=== PATIENT | male | born 1950 | race Caucasian/White ===

== ENCOUNTER → 2018-04-18 | Outpatient (CLI) | payer OTHER, MEDICARE ==
--- NOTE | 2018-04-18 11:44 | MR ---
EXAMINATION TYPE: MR cervical spine wo con DATE OF EXAM: 04/18/2018 COMPARISON: None HISTORY: Disc displacement C5-C6 TECHNIQUE: Multiplanar, multisequence images of the cervical spine were acquired. C2-C3: No evidence for degenerative disc disease. No disc bulge/herniation or protrusion. No Canal stenosis. Foramina are patent bilaterally. C3-C4: No evidence for degenerative disc disease. No disc bulge/herniation or protrusion. No Canal stenosis. Foramina are patent bilaterally. C4-C5: Posterior broad-based disc bulge causes minimal anterior mass effect on the thecal sac. No sig nificant central stenosis or foraminal encroachment. C5-C6: Posterior broad-based disc bulge causes mild anterior mass effect on the thecal sac. No signif icant central stenosis or foraminal encroachment. C6-C7: There is posterior extension of endplate disc complex, broad-based posterior disc bulge causin g anterior mass effect on the thecal sac, possibly contacting the anterior cervical cord. Foraminal e ncroachment due to uncovertebral joint hypertrophy facet arthropathy suspected. No significant centra l canal stenosis however. C7-T1: No evidence for degenerative disc disease. No disc bulge/herniation or protrusion. No Canal stenosis. Foramina are patent bilaterally. Cervical segments are intact. There is normal alignment. Cervical spinal cord is of normal signal. Craniovertebral junction relationships are within normal limits. There is multilevel spondylosis. Mi nimal endplate marrow signal changes are present especially 4, C5, C6-7. IMPRESSION: Mild degenerative disc disease.
== END | disposition home or self-care (01) ==
LOC: RADMRIMAIN 10:30
PROVIDERS: ATTEND Family Medicine
DX: M50.321 Other cervical disc degeneration at C4-C5 level (principal)
CPT/HCPCS: 72141

== ENCOUNTER 2018-06-02 11:44 | Emergency (ER) | payer MEDICARE ==
--- NOTE | 2018-06-02 12:21 | ED ---
General Adult HPI - General Chief complaint: Upper Respiratory Infection Stated complaint: cough, congestion Time Seen by Provider: 06/02/18 12:05 Source: patient, RN notes reviewed Mode of arrival: ambulatory Limitations: no limitations - History of Present Illness Initial comments: Patient is a 67-year-old male who presents to the emergency department with complaints of cough productive of sputum for 3 days. He reports he has been taking levofloxacin (2 doses) which was prescribed by his doctor. He also has an inhaler which he uses occasionally after he had pneumonia previously. He believes he has a "touch of asthma." Admits to shortness of breath, runny nose, congestion, and sore throat. Patient denies any recent fever, chills, chest pain , back pain, abdominal pain, nausea or vomiting, numbness or tingling, constipation or diarrhea, headaches or visual changes, or any other complaints. - Related Data Home Medications Medication Instructions Recorded Confirmed Beclomethasone Dipropionate [Qvar 2 puff INHALATION RT-BID PRN 06/02/18 06/02/18 80 mcg] Levofloxacin [Levaquin] 500 mg PO DAILY 06/02/18 06/02/18 Naproxen Sodium [Aleve] 220 mg PO BID PRN 06/02/18 06/02/18 Previous Rx's Medication Instructions Recorded Beclomethasone Dipropionate [Qvar 2 puff INHALATION BID PRN #1 06/02/18 80 mcg] inhaler Allergies Allergy/AdvReac Type Severity Reaction Status Date / Time No Known Allergies Allergy Verified 06/02/18 12:26 Review of Systems ROS Statement: Those systems with pertinent positive or pertinent negative responses have been documented in the HPI. ROS Other: All systems not noted in ROS Statement are negative. Past Medical History Past Medical History: No Reported History History of Any Multi-Drug Resistant Organisms: None Reported Past Surgical History: Orthopedic Surgery Past Psychological History: No Psychological Hx Reported Smoking Status: Never smoker Past Alcohol Use History: Occasional Past Drug Use History: None Reported General Exam Limitations: no limitations General appearance: alert, in no apparent distress Head exam: Present: atraumatic, normocephalic Eye exam: Present: normal appearance ENT exam: Present: TM's normal bilaterally, normal external ear exam, other ( Patient unable to cooperate with throat exam (unable to visualize tonsils/ oropharynx).) Neck exam: Present: normal inspection, other (No lymphadenopathy.) Respiratory exam: Present: wheezes (Throughout lung harper.), rhonchi ( Throughout lung harper.) Cardiovascular Exam: Present: normal rhythm, tachycardia GI/Abdominal exam: Present: soft, normal bowel sounds, other (No tenderness.) Extremities exam: Present: normal capillary refill Neurological exam: Present: alert, oriented X3 Psychiatric exam: Present: normal affect, normal mood Skin exam: Present: warm, dry Course Vital Signs 06/02/18 06/02/18 06/02/18 11:53 12:17 12:22 Temperature 98.2 F Pulse Rate 107 H 102 H Respiratory 20 20 20 Rate Blood Pressure 131/86 124/88 O2 Sat by Pulse 96 93 L Oximetry 06/02/18 06/02/18 06/02/18 12:51 12:59 14:59 Temperature Pulse Rate 88 100 102 H Respiratory Rate Blood Pressure O2 Sat by Pulse Oximetry 06/02/18 15:08 Temperature Pulse Rate 98 Respiratory Rate Blood Pressure O2 Sat by Pulse Oximetry Medical Decision Making - Medical Decision Making Patient feels better since breathing treatments. Chest x-ray reveals no acute pulmonary process and COPD. Upon further questioning the patient admitted that he had once been told he had COPD but that another doctor had told him he did not. He is outside the window of time for Tamiflu and since there is a reasonable chance it will not work he does not want to try it. He may continue taking the levofloxacin as prescribed by his physician. I will write him a prescription for Qvar. Case discussed in detail with attending physician Dr. Bynum. - Lab Data Result diagrams: 06/02/18 13:00 06/02/18 13:00 Lab Results 06/02/18 06/02/18 06/02/18 Range/Units 12:32 13:00 13:00 WBC 8.3 (3.8-10.6) k/uL RBC 5.70 (4.30-5.90) m/uL Hgb 17.6 H (13.0-17.5) gm/dL Hct 52.7 (39.0-53.0) % MCV 92.5 (80.0-100.0) fL MCH 30.9 (25.0-35.0) pg MCHC 33.4 (31.0-37.0) g/dL RDW 13.3 (11.5-15.5) % Plt Count 142 L (150-450) k/uL Neutrophils % 73 % Lymphocytes % 14 % Monocytes % 7 % Eosinophils % 3 % Basophils % 0 % Neutrophils # 6.0 (1.3-7.7) k/uL Lymphocytes # 1.1 (1.0-4.8) k/uL Monocytes # 0.6 (0-1.0) k/uL Eosinophils # 0.2 (0-0.7) k/uL Basophils # 0.0 (0-0.2) k/uL Sodium 140 (137-145) mmol/L Potassium 4.4 (3.5-5.1) mmol/L Chloride 106 (98-107) mmol/L Carbon Dioxide 25 (22-30) mmol/L Anion Gap 9 mmol/L BUN 20 (9-20) mg/dL Creatinine 0.85 (0.66-1.25) mg/dL Est GFR (CKD-EPI)AfAm >90 (>60 ml/min/1.73 sqM) Est GFR (CKD-EPI)NonAf 90 (>60 ml/min/1.73 sqM) Glucose 118 H (74-99) mg/dL Calcium 9.4 (8.4-10.2) mg/dL Influenza Type A RNA Detected H (Not Detectd) Influenza Type B (PCR) Not Detected (Not Detectd) Group A Strep Rapid (Negative) 06/02/18 Range/Units 13:00 WBC (3.8-10.6) k/uL RBC (4.30-5.90) m/uL Hgb (13.0-17.5) gm/dL Hct (39.0-53.0) % MCV (80.0-100.0) fL MCH (25.0-35.0) pg MCHC (31.0-37.0) g/dL RDW (11.5-15.5) % Plt Count (150-450) k/uL Neutrophils % % Lymphocytes % % Monocytes % % Eosinophils % % Basophils % % Neutrophils # (1.3-7.7) k/uL Lymphocytes # (1.0-4.8) k/uL Monocytes # (0-1.0) k/uL Eosinophils # (0-0.7) k/uL Basophils # (0-0.2) k/uL Sodium (137-145) mmol/L Potassium (3.5-5.1) mmol/L Chloride (98-107) mmol/L Carbon Dioxide (22-30) mmol/L Anion Gap mmol/L BUN (9-20) mg/dL Creatinine (0.66-1.25) mg/dL Est GFR (CKD-EPI)AfAm (>60 ml/min/1.73 sqM) Est GFR (CKD-EPI)NonAf (>60 ml/min/1.73 sqM) Glucose (74-99) mg/dL Calcium (8.4-10.2) mg/dL Influenza Type A RNA (Not Detectd) Influenza Type B (PCR) (Not Detectd) Group A Strep Rapid Negative (Negative) Disposition Clinical Impression: Influenza Disposition: HOME SELF-CARE Condition: Good Instructions: Influenza (ED) Additional Instructions: Follow up with PCP in 2 days. Return to emergency department if symptoms worsen or any other concerns. Prescriptions: Beclomethasone Dipropionate [Qvar 80 mcg] 2 puff INHALATION BID PRN #1 inhaler PRN Reason: Shortness Of Breath Or Wheezing Is patient prescribed a controlled substance at d/c from ED?: No Referrals: Kaushal Armendariz DO [Primary Care Provider] - 1-2 days Time of Disposition: 15:45
[2018-06-02] MEDS ORDERED: IPRATROPIUM-ALBUTEROL 3 ML NEB INHALATION STA ×2 (12:37→13:56)
[2018-06-02] MEDS ORDERED: SODIUM CHLORIDE 0.9% 1,000 ML IV STA (12:38)
--- NOTE | 2018-06-02 12:50 | XR ---
EXAMINATION TYPE: XR chest 2V DATE OF EXAM: 06/02/2018 COMPARISON: 08/09/2012 INDICATION: Cough, congestion x3 days TECHNIQUE: Frontal and lateral views of the chest are obtained. FINDINGS: The heart size is normal. The pulmonary vasculature is normal. The lungs are clear. There is hyperinflation flattening the diaphragms. Correlate for COPD IMPRESSION: 1. No acute pulmonary process. 2. COPD
[2018-06-02] MEDS ORDERED: DEXAMETHASONE 4 MG TAB PO STA (13:05)
[2018-06-02 13:19] LABS: Basophils % (A) 0 %; Eosinophils # (A) 0.2 k/uL (0-0.7); Eosinophils % (A) 3 %; HCT 52.7 % (39.0-53.0); HGB 17.6 gm/dL (13.0-17.5); Lymphocytes # (A) 1.1 k/uL (1.0-4.8); Lymphocytes % (A) 14 %; MCH 30.9 pg (25.0-35.0); MCHC 33.4 g/dL (31.0-37.0); MCV 92.5 fL (80.0-100.0); Mean Platelet Volume 6.9; Monocytes # (A) 0.6 k/uL (0-1.0); Monocytes % (A) 7 %; Neutrophils % (A) 73 %; Platelet Count 142 k/uL (150-450); RDW 13.3 % (11.5-15.5); WBC 8.3 k/uL (3.8-10.6)
[2018-06-02 13:27] LABS: Anion Gap 9 mmol/L; Blood Urea Nitrogen 20 mg/dL (9-20); Calcium 9.4 mg/dL (8.4-10.2); Carbon Dioxide 25 mmol/L (22-30); Chloride 106 mmol/L (98-107); Glucose 118 mg/dL (74-99); Potassium 4.4 mmol/L (3.5-5.1); Sodium 140 mmol/L (137-145)
[2018-06-02 15:58] VITALS: BP 135/82; PULSE 104; RESP 18; TEMP 98.3
== END 2018-06-02 16:02 | disposition home or self-care (01) ==
LOC: EC 11:44
DX: J11.1 Influenza due to unidentified influenza virus with other respiratory manifestations (principal); R00.0 Tachycardia, unspecified; Z87.01 Personal history of pneumonia (recurrent)
CPT/HCPCS: 36415; 94640 ×2; 80048; 85025; 87081; 87430; 87502; 71046; 99285; 96360; 96361; J8540

== ENCOUNTER 2018-06-04 16:57 | Emergency (ER) | payer MEDICARE ==
[2018-06-04 17:14] VITALS: RESP 18; TEMP 97.9
--- NOTE | 2018-06-04 17:30 | ED ---
General Adult HPI - General Chief complaint: Recheck/Abnormal Lab/Rx Stated complaint: left side neck swelling/congestion Source: patient Mode of arrival: ambulatory Limitations: no limitations - History of Present Illness Initial comments: Dictation was produced using [employer] dictation software. please excuse any grammatical, word or spelling errors. Chief Complaint: 67-year-old male with no significant past medical history presents with left jaw pain. History of Present Illness: Patient was recently seen in the emergency department for cough. He was worked up and found to have influenza. Patient was discharged. Patient presents today Is upon waking he noted swelling to his left anterior jaw. He states it wasn't there yesterday. States slightly painful to palpation. Patient denies any abnormal taste in his mouth. Patient has no worsening sore throat. No respiratory distress. Patient denies any hearing loss. The ROS documented in this emergency department record has been reviewed and confirmed by me. Those systems with pertinent positive or negative responses have been documented in the HPI. All other systems are other negative and/or noncontributory. - Related Data Home Medications Medication Instructions Recorded Confirmed Levofloxacin [Levaquin] 500 mg PO DAILY 06/02/18 06/04/18 Naproxen Sodium [Aleve] 220 mg PO BID PRN 06/02/18 06/04/18 Previous Rx's Medication Instructions Recorded Beclomethasone Dipropionate [Qvar 2 puff INHALATION BID PRN #1 06/02/18 80 mcg] inhaler Allergies Allergy/AdvReac Type Severity Reaction Status Date / Time No Known Allergies Allergy Verified 06/04/18 17:43 Review of Systems ROS Statement: Those systems with pertinent positive or pertinent negative responses have been documented in the HPI. ROS Other: All systems not noted in ROS Statement are negative. Past Medical History Past Medical History: No Reported History History of Any Multi-Drug Resistant Organisms: None Reported Past Surgical History: Orthopedic Surgery Past Psychological History: No Psychological Hx Reported Smoking Status: Never smoker Past Alcohol Use History: Occasional Past Drug Use History: None Reported General Exam - General Exam Comments Initial Comments: PHYSICAL EXAM: General Impression: Alert and oriented x3, not in acute distress HEENT: Normocephalic atraumatic, extra-ocular movements intact, pupils equal and reactive to light bilaterally, mucous membranes moist, nonerythematous induration to the left angle of the mandible. Cardiovascular: Heart regular rate and rhythm, S1&S2 audible, no murmurs, rubs or gallops Chest: Lungs clear to auscultation bilaterally, no rhonchi, no wheeze, no rales Abdomen: Bowel sounds present, abdomen soft, non-tender, non-distended, no organomegaly Musculoskeletal: Pulses present and equal in all extremities, no peripheral edema Motor: Power 5/5 bilaterally, no focal deficits noted Neurological: CN II-XII grossly intact, no focal motor or sensory deficits noted Skin: Intact with no visualized rashes Psych: Normal affect and mood Limitations: no limitations Course Vital Signs 06/04/18 17:12 Temperature 97.9 F Pulse Rate 85 Respiratory 18 Rate Blood Pressure 137/78 O2 Sat by Pulse 95 Oximetry Medical Decision Making - Medical Decision Making ED course: 79-year-old male with no significant past medical history presents with chief complaint of left mandibular pain and swelling. Vital signs upon arrival are within acceptable limits.CT soft tissue of the neck was obtained. There was some inflammatory fat stranding at the inferior margin of left parotid gland within the subcutaneous tissues of the neck. There is consideration of left sialoadenitis. More history and physical examination was performed. Patient had some fluid draining from the left vocal salivary duct. Patient told consult on sialagogues to help drain inflammation around the salivary gland. Patient also told to massage the left side of his face. Patient understandable agreeable to plan. Told to follow-up with primary care physician for further care. - Lab Data Result diagrams: 06/04/18 17:50 Lab Results 06/04/18 Range/Units 17:50 Sodium 142 (137-145) mmol/L Potassium 4.3 (3.5-5.1) mmol/L Chloride 104 (98-107) mmol/L Carbon Dioxide 27 (22-30) mmol/L Anion Gap 11 mmol/L BUN 21 H (9-20) mg/dL Creatinine 0.87 (0.66-1.25) mg/dL Est GFR (CKD-EPI)AfAm >90 (>60 ml/min/1.73 sqM) Est GFR (CKD-EPI)NonAf 89 (>60 ml/min/1.73 sqM) Glucose 115 H (74-99) mg/dL Calcium 9.1 (8.4-10.2) mg/dL Disposition Clinical Impression: Sialoadenitis Disposition: HOME SELF-CARE Condition: Good Is patient prescribed a controlled substance at d/c from ED?: No Referrals: Kaushal Armendariz DO [Primary Care Provider] - 1-2 days Time of Disposition: 19:32
[2018-06-04 18:19] LABS: Anion Gap 11 mmol/L; Blood Urea Nitrogen 21 mg/dL (9-20); Calcium 9.1 mg/dL (8.4-10.2); Carbon Dioxide 27 mmol/L (22-30); Chloride 104 mmol/L (98-107); Glucose 115 mg/dL (74-99); Potassium 4.3 mmol/L (3.5-5.1); Sodium 142 mmol/L (137-145)
--- NOTE | 2018-06-04 19:20 | CT ---
EXAMINATION TYPE: CT soft tissue neck w con DATE OF EXAM: 06/04/2018 HISTORY: swelling to left side of neck COMPARISON: MRI of the cervical spine dated 04/18/2018 CT DLP: 259.3 mGycm. Automated Exposure Control for Dose Reduction was Utilized. TECHNIQUE: CT scan of the neck is performed with IV Contrast, patient injected with 100 mL of Isovue 300, axial images are obtained, coronal and sagittal reformatted images are reviewed. FINDINGS: Airway: The pharyngeal tonsils are symmetric. Vallecula and piriform sinuses are patent. True and fal se focal cords are unremarkable. Small tonsilloliths are seen in the right. Parotid/submandibular glands: There is left-sided inflammatory fat stranding inferior to the left pa rotid gland and surrounding the inferior margin of the left parotid gland on image 28 through 34. No radiopaque calculus is seen. No dilation of the parotid duct. Submandibular prominent but nonenlarged lymph nodes are likely reactive on the left. Carotid/Vascular Structures: Carotids and vertebral arteries appear patent. Osseous Structures: Mild mucosal thickening is seen within the right maxillary sinus. Scant mucosal t hickening is present within the ethmoid sinuses. Remaining paranasal sinuses and mastoid air cells ar e well aerated. Mild multilevel degenerative changes of the spine are noted. Other: Cerebral atrophy is mild. Exam is not optimized for evaluation of intracranial structures. Orb its appear symmetric. IMPRESSION: Inflammatory fat stranding at the inferior margin of the left parotid gland and within th e subcutaneous tissues of the left neck. Left sialoadenitis is a possibility although no radiopaque o bstructing calculus is seen or ductal dilatation.
[2018-06-04 20:00] VITALS: BP 131/72; PULSE 86
== END 2018-06-04 20:00 | disposition home or self-care (01) ==
LOC: EC 16:57
DX: K11.20 Sialoadenitis, unspecified (principal)
CPT/HCPCS: 36415; 80048; 70491; 99284; Q9967

== ENCOUNTER → 2018-08-16 | Outpatient (CLI) | payer MEDICARE ==
--- NOTE | 2018-08-16 15:22 | MR ---
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 TECHNIQUE: Multiplanar, multisequence images of the brain and brainstem acoustic nerve disorder protocol is perf ormed without and with IV contrast, utilizing 10 mL intravenous Gadavist . FINDINGS: Diffusion weighted images demonstrate no evidence of a recent infarct or other diffusion ab normality. There is no worrisome extra-axial fluid collection. There is ventricular and sulcal promi nence consistent with diffuse cerebral atrophy. There are scattered foci of T2 hyperintensity seen th roughout the superficial, deep, and periventricular white matter. Lesions are nonspecific in appearan ce and distribution but most likely on basis of product of chronic small vessel ischemic change in pa tient of this age. Midline structures demonstrate normal morphology. The craniocervical junction appears within normal limits. The visualized sinuses are clear and the globes are intact. No suspicious opacification is seen in mastoid air cells bilaterally. Vestibulocochlear complexes are symmetric and felt within normal limits. There is no suspicious enhancing cerebellopontine angle mas s identified bilaterally. IMPRESSION: Mild to moderate diffuse cerebral atrophy and chronic small vessel ischemic change. No dye spicious enhancing mass present to account for patient's symptoms.
== END | disposition home or self-care (01) ==
LOC: RADMRIMAIN 13:39
PROVIDERS: ATTEND Otolaryngology
DX: I67.82 Cerebral ischemia (principal); G31.9 Degenerative disease of nervous system, unspecified
CPT/HCPCS: 82565; 70553; A9585

== ENCOUNTER → 2018-08-21 | Outpatient (CLI) | payer MEDICARE ==
--- NOTE | 2018-08-22 14:12 | ENG ---
ELECTRONYSTAGMOGRAM REPORT DATE OF SERVICE: 08/21/2018 VNG INDICATIONS: Vertigo. VNG FINDINGS: Saccades shows intact peak velocities, accuracies, and latencies. Gaze with fixation shows no nystagmus in any of the directions of gaze including centrally with vision denied. Tracking shows no significant break-ups. Optokinetic nystagmus shows no significant asymmetry at faster or slower speeds. Static position testing in seated, supine, head right and head left positions showed no nystagmus with eyes open or with vision denied. Patient unable to do side-lying positions or [place]-Hallpike maneuvers due to low back and neck problems. Caloric testing shows 10% unilateral left caloric weakness which is within normal limits. IMPRESSION: Unremarkable VNG study. Technical note that [place]-Hallpike maneuvers and position testing on the right and left side were not able to be completed due to the low back and neck pain. JEANA / GAYLEN: [id number] /
== END | disposition home or self-care (01) ==
LOC: NEUROMAIN 08:47
PROVIDERS: ATTEND Otolaryngology
DX: R42 Dizziness and giddiness (principal)
CPT/HCPCS: 92537; 92540

== ENCOUNTER 2019-01-18 13:40 | Emergency (ER) | payer MEDICARE ==
[2019-01-18 13:56] VITALS: RESP 18; TEMP 97.6
[2019-01-18] MEDS ORDERED: LORazepam 2 MG/ML INJ IV STA (14:10)
--- NOTE | 2019-01-18 14:36 | ED ---
General Adult HPI - General Source: patient, RN notes reviewed Mode of arrival: ambulatory Limitations: no limitations <Thien Tarango - Last Filed: 01/18/19 17:18> <Lobito Rice - Last Filed: 01/18/19 18:51> - General Chief complaint: Abdominal Pain Stated complaint: Abd pain Time Seen by Provider: 01/18/19 13:45 - History of Present Illness Initial comments: 68-year-old male with a past medical history of orthopedic surgery since to the emergency department for a chief complaint of left lower abdominal pain extending into his left groin. States this has been ongoing for about 3 days. States it seems to be getting worse. Patient is concerned he may have a hernia but was told previously he does not have a hernia. Patient states that today he noticed that his upper abdomen was bloating as well. States his abdomen was much larger than normal. She states she has had 2 loose bowel movements today. He is also some nausea but denies vomiting. Denies pain with urination. Denies fevers or chills. Does admit to a history of diverticulitis but states this does not feel the same. Patient stating he is scheduled for hip replacement of the right hip on 02/05/[address] Benitez. States this right hip started hurting just a few weeks ago and was found to be [id number]. Patient has no other complaints at this time including shortness of breath, chest pain, abdominal pain, nausea or vomiting, headache, or visual changes. (Thien Tarango) - Related Data Home Medications Medication Instructions Recorded Confirmed Naproxen Sodium [Aleve] 220 mg PO BID PRN 06/02/18 01/18/19 Allergies Allergy/AdvReac Type Severity Reaction Status Date / Time No Known Allergies Allergy Verified 01/18/19 15:08 Review of Systems ROS Other: All systems not noted in ROS Statement are negative. <Thien Tarango - Last Filed: 01/18/19 17:18> ROS Other: All systems not noted in ROS Statement are negative. <Lobito Rice - Last Filed: 01/18/19 18:51> ROS Statement: Those systems with pertinent positive or pertinent negative responses have been documented in the HPI. Past Medical History Past Medical History: No Reported History History of Any Multi-Drug Resistant Organisms: None Reported Past Surgical History: Orthopedic Surgery Past Psychological History: No Psychological Hx Reported Smoking Status: Never smoker Past Alcohol Use History: Occasional Past Drug Use History: None Reported <Thien Tarango - Last Filed: 01/18/19 17:18> General Exam Limitations: no limitations General appearance: alert, in no apparent distress Head exam: Present: atraumatic, normocephalic, normal inspection Eye exam: Present: normal appearance, PERRL, EOMI. Absent: scleral icterus, conjunctival injection, periorbital swelling ENT exam: Present: normal exam, mucous membranes moist Neck exam: Present: normal inspection, full ROM. Absent: tenderness, meningismus, lymphadenopathy Respiratory exam: Present: normal lung sounds bilaterally. Absent: respiratory distress, wheezes, rales, rhonchi, stridor Cardiovascular Exam: Present: regular rate, normal rhythm, normal heart sounds. Absent: systolic murmur, diastolic murmur, rubs, gallop, clicks GI/Abdominal exam: Present: soft, distended, tenderness (Mild left lower quadrant tenderness. No upper abdominal tenderness), normal bowel sounds. Absent: guarding, rebound, rigid exam: Present: normal inspection, other (No obvious hernia) Neurological exam: Present: alert, oriented X3, CN II-XII intact Psychiatric exam: Present: normal affect, normal mood <Thien Tarango - Last Filed: 01/18/19 17:18> Course <Lobito Rice - Last Filed: 01/18/19 18:51> Vital Signs 01/18/19 01/18/19 13:49 15:59 Temperature 97.6 F Pulse Rate 80 77 Respiratory 18 18 Rate Blood Pressure 138/99 140/95 O2 Sat by Pulse 95 95 Oximetry - Reevaluation(s) Reevaluation #1: 01/18/19 17:42 Patient reevaluated by myself, Dr. Rice. Patient standing comfortably at bedside. Patient states discomfort is left lower abdomen has resolved however still feels bloated of the upper abdomen. Abdomen is soft without significant tenderness. CT report reviewed. Case was discussed with Dr. Emanuel who will review the films (Lobito Rice) Medical Decision Making - Lab Data Result diagrams: 01/18/19 14:16 01/18/19 14:16 <Sukhdeep,Thien P - Last Filed: 01/18/19 17:18> - Lab Data Result diagrams: 01/18/19 14:16 01/18/19 14:16 - Radiology Data Radiology results: image reviewed (Computed tomography scan of the abdomen pelvis shows diverticulosis without diverticulitis, fusiform 3.6 cm distal aorta. Focus of air in the right iliac wing. Also may be area adjacent to the light sacral bone) <Lobito Rice - Last Filed: 01/18/19 18:51> - Medical Decision Making 68-year-old male with a past medical history of left hip replacement presents to the emergency department for a chief complaint of abdominal pain and bloating. Patient has had left groin pain for the past 3 days and today noticed his upper abdomen was bloating. States that this has improved much since he left the house and came to the emergency department. States he has been evaluated for swelling in the left groin before which has been ongoing for years but has worsened. States she was told there is no hernia by a surgeon. Denies nausea vomiting or diarrhea. Patient also complaining of right hip pain which he states he is scheduled for hip replacement for in a few weeks. States this pain has been ongoing for the past couple weeks. On exam I do not see any sign ificant swelling noted of the left groin. No significant tenderness noted in the left groin. Patient does have some left lower quadrant tenderness. Patient has full range motion of the right hip but it is painful. Vitals are stable. CBC and CMP are unremarkable. Lactic acid 0.8. Urine negative. Patient does have a fusiform prominence of the distal abdominal aorta with a diameter of 3.6 cm w hich was discussed with him. Patient has no suspicious lytic or sclerotic lesions noted of the osseous structures. There is a very low density within the right medial iliac crest which could be compatible with air. No recent bone biopsy. There is a consideration for osteomyelitis. Some air may be adjacent to the anterior inferior sacroiliac joint. Discussed case with Dr. Rice (Thien Luna) Patient was reevaluated by myself, Dr. Rice. Patient did complain of abdominal discomfort and bloating, more in the upper abdomen. Patient states he did have some discomfort left lower abdomen however now is more in the epigastric region. Abdomen is soft and nontender. Case was discussed with Dr. Emanuel who did come in and review the films. He did request CRP. He feels patient is safe for discharge and follow-up. He did discuss case with Dr. Benitez with previously seen the patient. Patient was again reevaluated and resting comfortably in chair at bedside. Patient is offered admission however refuses and states he will follow-up. Patient states he does have a another appointment with a different orthopedic doctor on Tuesday and will take his computed tomography scan there as well. Patient states he will also follow-up again with Dr. Benitez. Patient is advised also follow-up with primary care physician. Patient is made aware of all CT findings including patient's . (Lobito Rice) - Lab Data Lab Results 01/18/19 01/18/19 01/18/19 Range/Units 14:10 14:16 14:16 WBC 8.7 (3.8-10.6) k/uL RBC 5.41 (4.30-5.90) m/uL Hgb 16.5 (13.0-17.5) gm/dL Hct 48.7 (39.0-53.0) % MCV 90.0 (80.0-100.0) fL MCH 30.5 (25.0-35.0) pg MCHC 33.8 (31.0-37.0) g/dL RDW 13.5 (11.5-15.5) % Plt Count 234 (150-450) k/uL Neutrophils % 69 % Lymphocytes % 21 % Monocytes % 5 % Eosinophils % 2 % Basophils % 1 % Neutrophils # 6.0 (1.3-7.7) k/uL Lymphocytes # 1.8 (1.0-4.8) k/uL Monocytes # 0.4 (0-1.0) k/uL Eosinophils # 0.2 (0-0.7) k/uL Basophils # 0.1 (0-0.2) k/uL Sodium 141 (137-145) mmol/L Potassium 4.2 (3.5-5.1) mmol/L Chloride 106 (98-107) mmol/L Carbon Dioxide 27 (22-30) mmol/L Anion Gap 8 mmol/L BUN 21 H (9-20) mg/dL Creatinine 0.78 (0.66-1.25) mg/dL Est GFR (CKD-EPI)AfAm >90 (>60 ml/min/1.73 sqM) Est GFR (CKD-EPI)NonAf >90 (>60 ml/min/1.73 sqM) Glucose 99 (74-99) mg/dL Plasma Lactic Acid Jesse (0.7-2.0) mmol/L Calcium 9.4 (8.4-10.2) mg/dL Total Bilirubin 0.7 (0.2-1.3) mg/dL AST 32 (17-59) U/L ALT 38 (21-72) U/L Alkaline Phosphatase 96 (38-126) U/L C-Reactive Protein (<10.0) mg/L Total Protein 7.5 (6.3-8.2) g/dL Albumin 4.6 (3.5-5.0) g/dL Amylase 57 (30-110) U/L Lipase 66 (23-300) U/L Urine Color Yellow Urine Appearance Clear (Clear) Urine pH 6.0 (5.0-8.0) Ur Specific [place] 1.026 (1.001-1.035) Urine Protein Negative (Negative) Urine Glucose (UA) Negative (Negative) Urine Ketones Negative (Negative) Urine Blood Negative (Negative) Urine Nitrite Negative (Negative) Urine Bilirubin Negative (Negative) Urine Urobilinogen <2.0 (<2.0) mg/dL Ur Leukocyte Esterase Negative (Negative) 01/18/19 01/18/19 Range/Units 14:16 14:36 WBC (3.8-10.6) k/uL RBC (4.30-5.90) m/uL Hgb (13.0-17.5) gm/dL Hct (39.0-53.0) % MCV (80.0-100.0) fL MCH (25.0-35.0) pg MCHC (31.0-37.0) g/dL RDW (11.5-15.5) % Plt Count (150-450) k/uL Neutrophils % % Lymphocytes % % Monocytes % % Eosinophils % % Basophils % % Neutrophils # (1.3-7.7) k/uL Lymphocytes # (1.0-4.8) k/uL Monocytes # (0-1.0) k/uL Eosinophils # (0-0.7) k/uL Basophils # (0-0.2) k/uL Sodium (137-145) mmol/L Potassium (3.5-5.1) mmol/L Chloride (98-107) mmol/L Carbon Dioxide (22-30) mmol/L Anion Gap mmol/L BUN (9-20) mg/dL Creatinine (0.66-1.25) mg/dL Est GFR (CKD-EPI)AfAm (>60 ml/min/1.73 sqM) Est GFR (CKD-EPI)NonAf (>60 ml/min/1.73 sqM) Glucose (74-99) mg/dL Plasma Lactic Acid Jesse 0.8 (0.7-2.0) mmol/L Calcium (8.4-10.2) mg/dL Total Bilirubin (0.2-1.3) mg/dL AST (17-59) U/L ALT (21-72) U/L Alkaline Phosphatase (38-126) U/L C-Reactive Protein 12.1 H (<10.0) mg/L Total Protein (6.3-8.2) g/dL Albumin (3.5-5.0) g/dL Amylase (30-110) U/L Lipase (23-300) U/L Urine Color Urine Appearance (Clear) Urine pH (5.0-8.0) Ur Specific [place] (1.001-1.035) Urine Protein (Negative) Urine Glucose (UA) (Negative) Urine Ketones (Negative) Urine Blood (Negative) Urine Nitrite (Negative) Urine Bilirubin (Negative) Urine Urobilinogen (<2.0) mg/dL Ur Leukocyte Esterase (Negative) Disposition <Thien Tarango - Last Filed: 01/18/19 17:18> Is patient prescribed a controlled substance at d/c from ED?: No Time of Disposition: 18:51 <Lobito Rice - Last Filed: 01/18/19 18:51> Clinical Impression: Abdominal pain, Right hip pain Disposition: HOME SELF-CARE Condition: Stable Instructions (If sedation given, give patient instructions): Abdominal Pain (E D) Additional Instructions: Please follow-up with primary care physician in the next day or 2 for recheck. Please also follow-up with Dr. Benitez the next day or [address] scan with U for follow-up with your other orthopedic doctor, you are being provided a copy. You will need follow-up regarding computed tomography scan with both orthopedics and primary care physician. Referrals: Kaushal Armendariz DO [Primary Care Provider] - 1-2 days Glenn Benitez DO [Doctor of Osteopathic Medicine] - 1-2 days
[2019-01-18 14:49] LABS: Basophils # (A) 0.1 k/uL (0-0.2); Basophils % (A) 1 %; Eosinophils # (A) 0.2 k/uL (0-0.7); Eosinophils % (A) 2 %; HCT 48.7 % (39.0-53.0); HGB 16.5 gm/dL (13.0-17.5); Lymphocytes # (A) 1.8 k/uL (1.0-4.8); Lymphocytes % (A) 21 %; MCH 30.5 pg (25.0-35.0); MCHC 33.8 g/dL (31.0-37.0); Mean Platelet Volume 6.7; Monocytes # (A) 0.4 k/uL (0-1.0); Monocytes % (A) 5 %; Neutrophils % (A) 69 %; Platelet Count 234 k/uL (150-450); RBC 5.41 m/uL (4.30-5.90); RDW 13.5 % (11.5-15.5); WBC 8.7 k/uL (3.8-10.6)
[2019-01-18 14:59] LABS: ALT 38 U/L (21-72); AST 32 U/L (17-59); African American GFR (CKD) >90 (>60 ml/min/1.73 sqM); Albumin 4.6 g/dL (3.5-5.0); Alkaline Phosphatase 96 U/L (38-126); Amylase 57 U/L (30-110); Anion Gap 8 mmol/L; Blood Urea Nitrogen 21 mg/dL (9-20); Calcium 9.4 mg/dL (8.4-10.2); Carbon Dioxide 27 mmol/L (22-30); Chloride 106 mmol/L (98-107); Glucose 99 mg/dL (74-99); Lipase 66 U/L (23-300); Potassium 4.2 mmol/L (3.5-5.1); Sodium 141 mmol/L (137-145); Total Bilirubin 0.7 mg/dL (0.2-1.3); Total Protein 7.5 g/dL (6.3-8.2)
[2019-01-18 15:09] LABS: Appearance,Urine Clear (Clear); Bilirubin,Urine Negative (Negative); Blood,Urine Negative (Negative); Color,Urine Yellow; Glucose,Urine (UA) Negative (Negative); Ketones,Urine Negative (Negative); Leukocyte Esterase,Urine Negative (Negative); Nitrite,Urine Negative (Negative); Protein,Urine Negative (Negative); Specific Gravity,Urine 1.026 (1.001-1.035); Urobilinogen,Urine <2.0 mg/dL (<2.0)
--- NOTE | 2019-01-18 16:10 | CT ---
EXAMINATION TYPE: CT abdomen pelvis w con DATE OF EXAM: 01/18/2019 COMPARISON: None INDICATION: Abdominal pain DLP: 1588.6 mGycm, Automated exposure control for dose reduction was used. CONTRAST: 100 mL of Isovue 300. Study performed without Oral Contrast TECHNIQUE: Axial images were obtained from above the diaphragm to the pubic rami in the axial plane a t 5 mm thick sections. Reconstructed images are reviewed on the computer in the coronal plane. FINDINGS: Limited CT sections are obtained the lung bases. The lung bases are clear. CT ABDOMEN: Liver: Normal Spleen: Normal Pancreas: Fatty infiltrated Adrenal glands: The adrenal gland has minimal prominence 1.2 cm transverse. Right adrenal gland appea rs normal. Gallbladder: Normal Kidneys: No masses are evident. No hydronephrosis is present. No cysts are present. Delayed images were obtained through the kidneys, which remain unremarkable. Aorta: Vascular calcification is within the aorta. There is fusiform prominence of the distal abdomi nal aorta which begins in the infrarenal region. This has maximum AP diameter of 3.6 cm and terminate s at the bifurcation. Inferior vena cava: Normal. CT PELVIS: There is some limitation in the lower pelvis due to beam hardening artifact from left hip prosthesis. Multiple diverticuli are through the sigmoid colon. No adjacent inflammatory changes suggest acute di verticulitis are evident. A few scattered diverticuli are within the descending colon region. Loops o f bowel without contrast otherwise appear normal. Study is performed without oral contrast limiting b owel evaluation. Appendix: Normal as visualized. Urinary bladder: Normal. Genitourinary structures: Prostate is prominent. Osseous structures: No suspicious lytic or sclerotic lesions. Degenerative disc changes are within th e lumbar spine. Very low density is within the right medial iliac crest which could be compatible wit h air. Has there been recent bone biopsy? Sacroiliac joint vacuum phenomenon is not identified. Consi dering indication of osteomyelitis. Some air may be adjacent to the anterior inferior sacroiliac join t. IMPRESSIONS: 1. Fusiform prominence of the distal abdominal aorta with an AP diameter of 3.6 cm. 2. Diverticulosis without acute diverticulitis sigmoid colon and descending colon. 3. There appears to be some air within the right medial iliac wing of uncertain etiology. Some additi onal air may be adjacent to the anterior inferior left sacroiliac joint.
[2019-01-18] MEDS ORDERED: ONDANSETRON 4 MG/2 ML VIAL IVP STA (17:19)
[2019-01-18] MEDS: MORPHINE SULFATE 4 MG/ML SYRINGE IVP STA ×2 (17:44→17:56)
[2019-01-18] MEDS ORDERED: KETOROLAC 30 MG/ML 1 ML VIAL IVP STA (17:51)
[2019-01-18 19:06] VITALS: BP 142/96; PULSE 69
== END 2019-01-18 19:06 | disposition home or self-care (01) ==
LOC: EC 13:40
DX: R10.32 Left lower quadrant pain (principal); M25.551 Pain in right hip; R14.0 Abdominal distension (gaseous); Z96.642 Presence of left artificial hip joint; Z87.19 Personal history of other diseases of the digestive system; Z53.8 Procedure and treatment not carried out for other reasons; Z53.29 Procedure and treatment not carried out because of patient's decision for other reasons
CPT/HCPCS: 99284; 96374; 96375; 36415; 80053; 82150; 83605; 83690; 85025; 86140; 81003; 74177; J2405; J1885; Q9967

== ENCOUNTER → 2019-01-30 | Outpatient (CLI) | payer MEDICARE ==
[2019-01-30 15:32] LABS: HCT 48.2 % (39.0-53.0); HGB 16.6 gm/dL (13.0-17.5); MCH 31.7 pg (25.0-35.0); MCHC 34.5 g/dL (31.0-37.0); Mean Platelet Volume 7.2; Platelet Count 205 k/uL (150-450); RBC 5.24 m/uL (4.30-5.90); RDW 13.6 % (11.5-15.5); WBC 7.9 k/uL (3.8-10.6)
[2019-01-30 15:34] LABS: Appearance,Urine Clear (Clear); Bilirubin,Urine Negative (Negative); Blood,Urine Negative (Negative); Color,Urine Yellow; Glucose,Urine (UA) Negative (Negative); Ketones,Urine Negative (Negative); Leukocyte Esterase,Urine Negative (Negative); Nitrite,Urine Negative (Negative); Protein,Urine Negative (Negative); Specific Gravity,Urine 1.022 (1.001-1.035); Urobilinogen,Urine <2.0 mg/dL (<2.0)
[2019-01-30 15:44] LABS: ALT 28 U/L (21-72); AST 30 U/L (17-59); African American GFR (CKD) >90 (>60 ml/min/1.73 sqM); Albumin 4.7 g/dL (3.5-5.0); Alkaline Phosphatase 99 U/L (38-126); Anion Gap 9 mmol/L; Blood Urea Nitrogen 23 mg/dL (9-20); Calcium 9.5 mg/dL (8.4-10.2); Carbon Dioxide 27 mmol/L (22-30); Chloride 104 mmol/L (98-107); Glucose 99 mg/dL (74-99); Potassium 4.3 mmol/L (3.5-5.1); Sodium 140 mmol/L (137-145); Total Bilirubin 0.6 mg/dL (0.2-1.3); Total Protein 7.5 g/dL (6.3-8.2)
[2019-01-30 15:46] LABS: INR 0.9 (<1.2); Partial Thromboplastin Time 25.8 sec (22.0-30.0)
== END | disposition home or self-care (01) ==
LOC: LABWHC1 14:05
PROVIDERS: ATTEND Orthopaedic Surgery
DX: Z01.812 Encounter for preprocedural laboratory examination (principal); Z01.818 Encounter for other preprocedural examination; M16.11 Unilateral primary osteoarthritis, right hip; Z79.01 Long term (current) use of anticoagulants
CPT/HCPCS: 36415; 80053; 81003; 85027; 85610; 85730; 87070; 93005

== ENCOUNTER 2019-02-05 06:00 | Inpatient (IN) | payer MEDICARE ==
[2019-01-30 09:49] VITALS: BMI 33.0
[~2019-02-05 06:00] MED LIST: ACETAMINOPHEN TAB 500 MG TAB PO ONE; DEXAMETHASONE SOD PHOSPHATE 10 MG/ML 1 ML VIAL IV ONE; LIDOCAINE 1% 20 ML VIAL (10MG/ML) FOR IV START INTRADERMA PRN; MELOXICAM 7.5 MG TAB PO ONE; MIDAZOLAM 2 MG/2 ML VIAL IV PRN; TRANEXAMIC ACID 1,000 MG in SODIUM CHLORIDE 0.9% 100 ML IVPB ONE; fentaNYL (PF) 50 MCG/ML 2 ML AMP IV PRN
[2019-02-05] MEDS ORDERED: ROPIVACAINE 246.25 MG, EPINEPHrine 0.5 MG, KETOROLAC 30 MG, cloNIDine HCL/PF 80 MCG, WA... MISCELLANE ONE ×5 (06:11)
[2019-02-05] MEDS: LACTATED RINGERS 1,000 ML IV SCH ×2 (06:30→23:10)
[2019-02-05] MEDS ORDERED: ONDANSETRON 4 MG/2 ML VIAL IVP ONE (06:50)
[2019-02-05] MEDS ORDERED: ONDANSETRON 4 MG/2 ML VIAL IVP PRN (06:54)
[2019-02-05] MEDS ORDERED: DIAZEPAM 5 MG TAB PO PRN (06:54)
[2019-02-05] MEDS ORDERED: hydrOXYzine PAMOATE 25 MG CAP PO PRN (06:54)
[2019-02-05] MEDS ORDERED: NALOXONE 0.4 MG/ML 1 ML VIAL IV PRN (06:54)
[2019-02-05] MEDS ORDERED: MAGNESIUM HYDROXIDE 2,400 MG/10 ML CUP PO PRN (06:54)
[2019-02-05] MEDS ORDERED: HYDROmorphone 0.5 MG/0.5 ML SYRINGE IVP PRN ×3 (06:54)
[2019-02-05] MEDS ORDERED: MIDAZOLAM 2 MG/2 ML VIAL ONE (06:56)
[2019-02-05] MEDS ORDERED: SODIUM CHLORIDE 0.9% IRRIG 1,000 ML BTL IRRIGATION ONE (06:56)
[2019-02-05] MEDS ORDERED: HEPARIN SODIUM,PORCINE 10,000 UNIT/ML 1 ML VIAL ONE (06:56)
[2019-02-05] MEDS ORDERED: fentaNYL (PF) 50 MCG/ML 2 ML AMP ONE (06:56)
[2019-02-05] MEDS ORDERED: TRANEXAMIC ACID 1,000 MG/10 ML VIAL ONE (06:56)
[2019-02-05] MEDS ORDERED: SODIUM CHLORIDE 0.9% 100 ML BAG ONE (06:56)
[2019-02-05] MEDS ORDERED: ePHEDrine SULFATE/0.9% NACL/PF 50 MG/5 ML SYRINGE IV ONE (06:56)
[2019-02-05] MEDS ORDERED: ceFAZolin 3,000 MG in SODIUM CHLORIDE 0.9% IRRIGATIO 3,000 ML IRRIGATION ONE (07:00)
--- NOTE | 2019-02-05 08:23 | P.OP ---
Date of Procedure: 02/05/19 Preoperative Diagnosis: Severe osteoarthritis right hip Postoperative Diagnosis: Severe osteoarthritis right hip Procedure(s) Performed: Right total hip arthroplasty with a direct anterior approach Implants: Bose and nephew Polarstem size 3 standard Bose [employer] Nephew R3, 3 hole acetabular shell, 56 mm Bose [employer]hew reflection 6.5 mm cancellus screw, 20 mm, 25 mm Bose [employer]hew R3, XLPE 20 acetabular liner Bose [employer] Nephew Oxinium femoral head 36 m, -3 All components were press-fit. The articulation is Oxinium on polyethylene. Anesthesia: spinal Surgeon: Glenn Benitez Dye Colorist Formulator #1: Dawna Bro Estimated Blood Loss (ml): 400 (255 mL returned with Cell Saver) Pathology: other (Femoral head) Condition: stable Disposition: PACU Indications for Procedure: After failure of conservative treatment we discussed the surgical and nonsurgical treatment options at length. Patient wishes to proceed with a total hip arthroplasty with a direct anterior approach. Complications specific to this procedure were discussed at length, including but not limited to infection, leg length discrepancy, dislocation, and nerve injury. Patient is aware of all these complications and informed consent was obtained Operative Findings: The operative findings are consistent with severe osteoarthritis of the right hip Description of Procedure: Patient was seen and evaluated in the preoperative area, consent was reviewed, and the surgical site was marked with a skin marker. Patient was then brought to the operating room and given prophylactic antibiotics intravenously. 1 g of Tranexamic acid was also given. A spinal anesthetic was administered by the anesthesia department. The patient was then placed on the [place] table with the bony prominences well-padded. The hip area was then prepped and draped in usual sterile fashion. A universal timeout was then performed, which confirmed the patient's name, surgical site, ALLERGIES, and procedure being performed. Next the incision site was located at 1 cm distal and 1 cm lateral to the anterior superior iliac spine. The skin and subcutaneous tissues were sharply incised. Incision was carefully dissected down to the fascia overlying the tensor fascia joann muscle. This fascia was then incised in line with the incision. Next, using blunt finger dissection, the tensor fascia joann muscle was dissected off its investing fascia. The muscle was then carefully retracted laterally with a cobra retractor over the lateral neck of the femur. Next, the circumflex vessels were identified and cauterized using the AquaMantis device. The anterior hip capsule was then exposed. The capsule was then opened and an inverted T fashion. Cobra retractors were then placed intracapsularly. The proximal femur was then visualized. The femoral neck was then osteotomized appropriate level above the lesser trochanter. Small amount of traction was placed with the [place] table. A small wedge of bone was then removed from the remaining femoral head. Next, using a corkscrew femoral head was easily removed from the acetabulum. On gross visual inspection, the femoral head had complete loss of articular cartilage in multiple periarticular osteophytes. Attention was then turned to the acetabulum. the acetabulum was exposed and any remaining labrum was excised. Sequential reaming of the acetabulum was performed using fluoroscopic guidance. When the appropriate size was reached, a trial was then placed. The position and fit of the trial was checked with fluoroscopy. The trial was then removed. Then, us ing fluoroscopic guidance, the final implant was impacted at 20 of anteversion and 40 of abduction, and fully seated in the acetabulum. 2 screws were then placed in the acetabulum. Again fluoroscopy was used to check position of the screws. Next, the liner was then impacted, with a 20 elevated liner located in the anterior superior quadrant. Component locking was confirmed. Attention was then directed to the femur. With the aid of the [place] table, the femur was externally rotated to approximately 130, extended, and abducted under the opposite leg. A side hook was then placed under the proximal femur, and the side hook elevator was used to elevate the proximal femur. Retractors were then placed. A capsular release was performed, as well as a release of the conjoined tendon, which afforded excellent visualization of the proximal femur. Next, a box osteotome was used to lateralize the proximal femur. A caramel cutter hand was then used to locate the femoral canal. Sequential broaching was then performed with appropriate size which afforded excellent fixation in the proximal femur. A trial was then placed with appropriate head and neck, and the hip was gently reduced with the aid of the [place] table. Fluoroscopy was then used to check position of the components, as well as to ensure equal leg lengths. The hip was then gently dislocated and the trials were then removed. Final implants were then impacted and the hip was again reduced. Final fluoroscopic x-rays confirmed that the components were in anatomic position, as well as equal leg lengths. The hip was also taken through range of motion, and found to be stable. The hip was then copiously irrigated with antibiotic solution with pulsatile lavage. The hip was then irrigated with Irrisept solution. The soft tissues were then injected with a ropivacaine solution, which consisted of 246.25 mg of ropivacaine, 0.5 mg of epinephrine, 30 mg of Toradol, 80 g of clonidine, and 48.45 mL of sterile water, for a total of 100 mL of fluid injected. A second dose of 1 g of Tranexamic acid was also given. the fascia was then closed with 2-0 strata fix suture. The subcutaneous tissue was closed with 3-0 Vicryl. The subcuticular tissue was closed with 3-0 strata fix suture. The skin was then closed with Dermabond glue and a sterile silver dressing. The patient was then transferred to the recovery room in stable condition. The assistant professor of philosophy CAROL Valero was required due to the complexity of surgery, and the need for skilled surgical product sales consultant for positioning, draping, exposure, retraction, and closure of the wound.
[2019-02-05] MEDS ORDERED: LACTATED RINGERS 1,000 ML IV ONE (08:30)
--- NOTE | 2019-02-05 09:01 | FL ---
Fluoroscopy HISTORY: Anterior hip replacement 30 seconds fluoroscopy time supplied to the referring clinician. 2 intraoperative C-arm images docum ent the procedure. See dictated report from orthopedic surgery.
--- NOTE | 2019-02-05 09:01 | XR ---
Limited right hip HISTORY: Anterior hip replacement 2 intraoperative C-arm images document the procedure.
[2019-02-05] MEDS ORDERED: HYDROmorphone 1 MG/ML 1 ML SYRINGE IVP ONE ×3 (09:15→09:52)
--- NOTE | 2019-02-05 09:18 | XR ---
Limited right hip HISTORY: Status post right hip arthroplasty Single frontal view of the right hip Patient is status post right hip arthroplasty. There is anatomic alignment. IMPRESSION: Orthopedic follow-up.
[2019-02-05] MEDS: HYDROcodone/APAP 5-325MG 1 EACH TAB PO PRN ×3 (11:03→22:05)
[2019-02-05] MEDS: SODIUM CHLORIDE 0.9% 1,000 ML IV SCH ×2 (11:50→22:16)
[2019-02-05] MEDS ORDERED: SENNOSIDES-DOCUSATE SODIUM 1 EACH TAB PO SCH (21:00)
[2019-02-05] MEDS: ASPIRIN 325 MG TAB PO SCH (22:02)
[2019-02-06] MEDS: HYDROcodone/APAP 5-325MG 1 EACH TAB PO PRN ×2 (06:05→12:25)
[2019-02-06] MEDS: ASPIRIN 325 MG TAB PO SCH (06:59)
[2019-02-06] MEDS ORDERED: MELOXICAM 7.5 MG TAB PO SCH (09:00)
[2019-02-06 09:06] VITALS: BP 135/84; PULSE 74; RESP 12; TEMP 98.2
[2019-02-06 09:31] LABS: Basophils % (A) 0 %; Eosinophils # (A) 0.1 k/uL (0-0.7); Eosinophils % (A) 1 %; HCT 41.1 % (39.0-53.0); Lymphocytes # (A) 1.5 k/uL (1.0-4.8); Lymphocytes % (A) 13 %; MCHC 32.6 g/dL (31.0-37.0); Mean Platelet Volume 7.7; Monocytes # (A) 0.7 k/uL (0-1.0); Monocytes % (A) 6 %; Neutrophils # (A) 9.3 k/uL (1.3-7.7); Neutrophils % (A) 79 %; Platelet Count 163 k/uL (150-450); RBC 4.32 m/uL (4.30-5.90); WBC 11.7 k/uL (3.8-10.6)
[2019-02-06 09:43] LABS: HGB 13.4 gm/dL (13.0-17.5)
--- NOTE | 2019-02-06 10:04 | P.DS ---
Providers Date of admission: 02/05/19 06:00 Expected date of discharge: 02/06/19 Attending physician: Glenn Benitez Consults: 02/05/19 06:54 Consult Physician Routine Consulting Provider: Kaushal Armendariz Consult Reason/Comments: medical management Do you want consulting provider notified?: Yes Primary care physician: Kaushal Armendariz - Discharge Diagnosis(es) (1) Osteoarthritis of right hip Current Visit: Yes Status: Acute (2) S/P total hip arthroplasty Current Visit: Yes Status: Acute Hospital Course: This is a 68-year-old male with known history of degenerative arthritis of the right hip. The patient presents for evaluation. After discussion and consideration patient elects to proceed with total hip arthroplasty. The patient is seen preoperatively by Dr. Benitez and medically cleared for surgery by their primary care physician. Patient is admitted to [facility] on 02/05/2019 for total hip arthroplasty. The procedures performed without complication or sequelae. The patient is doing well postoperatively. Labs and vital signs are stable on day of discharge. On day of discharge patient's hip incision is healing well. There is minimal erythema. There is no drainage noted at this time. There is minimal soft tissue swelling to the hip and thigh. Patient has full foot and ankle motion without difficulty or pain. Calf is soft and nontender to palpation. Neurovascular status to the right lower extremity is intact. Patient is discharged home in good condition. Opioid start talking form is reviewed and signed at patient bedside. Please see med rec for accurate list of home medications. Plan - Discharge Summary Discharge Rx Participant: Yes New Discharge Prescriptions: New Aspirin 325 mg PO BID #60 tab HYDROcodone/APAP 5-325MG [[place] 5-325] 1 - 2 tab PO Q6HR PRN #56 tab PRN Reason: Pain Sennosides [Senokot] 1 tab PO BID #60 tablet Diazepam [Valium] 5 mg PO BID #10 tab No Action Naproxen Sodium [Aleve] 220 mg PO BID PRN PRN Reason: Pain Discharge Medication List Naproxen Sodium [Aleve] 220 mg PO BID PRN 06/02/18 [History] Aspirin 325 mg PO BID #60 tab 02/06/19 [Rx] Diazepam [Valium] 5 mg PO BID #10 tab 02/06/19 [Rx] HYDROcodone/APAP 5-325MG [[place] 5-325] 1 - 2 tab PO Q6HR PRN #56 tab 02/06/19 [Rx] Sennosides [Senokot] 1 tab PO BID #60 tablet 02/06/19 [Rx] Follow up Appointment(s)/Referral(s): Glenn Benitez DO [Doctor of Osteopathic Medicine] - 10 Days Activity/Diet/Wound Care/Special Instructions: Weightbearing as tolerated with walker. Leave dressing intact. Dressing may be removed by home care nurse or by patient in 10 days. May shower with dressing on. Please follow-up with [facility] in 2 weeks and call with any questions or concerns, . Discharge Disposition: HOME WITH HOME HEALTH SERVICES
--- NOTE | 2019-02-06 13:47 | P.CONS ---
History of Present Illness - Reason for Consult Consult date: 02/06/19 Medical management, former smoker Requesting physician: Glenn Benitez - Chief Complaint Severe right hip osteoarthritis - History of Present Illness This 68-year-old gentleman with severe osteoarthritis right hip, failed conservative treatment, status post right total hip arthroplasty with the direct anterior approach. Tolerated procedure well. This morning complained of pain as well as muscle spasms, pain management adjusted as per orthopedics. Good diet intake, 100% with no nausea vomiting or diarrhea. Passing flatus, no bowel movement. Denies chest pain, palpitations or shortness of breath. Denies lightheadedness dizziness or focal deficits. Afebrile, WBC 11.7. maintaining O2 sats in the 90s on room air. Review of Systems ROS Statement: Those systems with pertinent positive or pertinent negative responses have been documented in the HPI. ROS Other: All systems not noted in ROS Statement are negative. Past Medical History Past Medical History: Osteoarthritis (OA) History of Any Multi-Drug Resistant Organisms: None Reported Past Surgical History: Joint Replacement Additional Past Surgical History / Comment(s): LT TKA AND FABIAN. COLONOSCOPY, RIGHT TOTAL KNEE Past Anesthesia/Blood Transfusion Reactions: No Reported Reaction Past Psychological History: No Psychological Hx Reported Smoking Status: Former smoker Past Alcohol Use History: Occasional Additional Past Alcohol Use History / Comment(s): QUIT SMOKING 2001 Past Drug Use History: None Reported - Past Family History Mother Family Medical History: No Reported History Medications and Allergies Home Medications Medication Instructions Recorded Confirmed Type Naproxen Sodium [Aleve] 220 mg PO BID PRN 06/02/18 02/05/19 History Aspirin 325 mg PO BID #60 tab 02/06/19 Rx Diazepam [Valium] 5 mg PO BID #10 tab 02/06/19 Rx HYDROcodone/APAP 5-325MG [[place] 1 - 2 tab PO Q6HR PRN #56 tab 02/06/19 Rx 5-325] Sennosides [Senokot] 1 tab PO BID #60 tablet 02/06/19 Rx Allergies Allergy/AdvReac Type Severity Reaction Status Date / Time No Known Allergies Allergy Verified 02/05/19 10:16 Physical Exam Vitals: Vital Signs Temp Pulse Pulse Resp BP Pulse Ox 02/06/19 07:00 98.2 F 74 12 135/84 96 02/06/19 00:27 97.9 F 53 L 14 109/69 93 L 02/05/19 19:19 98.0 F 80 15 125/72 95 02/05/19 14:27 96.4 F L 75 17 109/68 96 02/05/19 12:50 74 113/79 96 02/05/19 12:35 81 131/89 96 02/05/19 12:19 77 130/74 97 02/05/19 12:04 66 117/79 99 02/05/19 11:49 72 111/74 93 L 02/05/19 11:35 73 118/77 98 02/05/19 11:20 77 117/76 95 02/05/19 11:06 79 119/78 94 L 02/05/19 10:49 74 113/70 95 02/05/19 10:35 97.6 F 74 107/70 96 Intake and Output 02/05/19 02/06/19 02/06/19 22:59 06:59 14:59 Intake Total 780 940 Output Total 450 Balance 330 940 Intake: Intake, IV Titration 700 Amount Sodium Chloride 0.9% 1, 700 000 ml @ 70 mls/hr IV . [id number] [facility] Rx#:[id number] Oral 780 240 Output: Urine 450 Other: # Voids 1 3 PHYSICAL EXAM: VITAL SIGNS: As GENERAL: Sitting up in bed, no acute distress HEENT: Conjunctivae normal. eyes normal. Oral mucosa moist NECK: No JVD. No thyroid enlargement. No LNs CARDIOVASCULAR: S1, S2 regular.. No murmur RESPIRATION: Breath sounds diminished in the bases. No rhonchi or crackles. No bronchial breathing. ABDOMEN: Soft, nontender . No guarding. no masses palpable. No ascites, No hepatosplenomegaly.Bowel sounds heard. LEGS: Status post right hip surgery; Right thigh with mild edema and bruising, positive pulses PSYCHIATRY: Alert and oriented X3, mood and affect normal. NERVOUS SYSTEM: Cranial N 2-12 grossly normal. Moves all 4 limbs. Diffuse weakness No focal deficits. Strength and sensation grossly intact.. Skin: no lesions, no rash Lymphatic system. No LN neck axilla or groin. Results CBC & Chem 7: 02/06/19 08:14 Labs: Abnormal Lab Results - Last 24 Hours (Table) 02/06/19 Range/Units 08:14 WBC 11.7 H (3.8-10.6) k/uL Neutrophils # 9.3 H (1.3-7.7) k/uL Assessment and Plan Assessment: -Right hip osteoarthritis -Status post total hip arthroplasty , failed conservative treatment -History of nicotine dependence -Leukocytosis, most likely reactive Plan: Continue current medication regime ,monitoring and symptomatic treatment. PT/OT. Increase ambulation as ordered per orthopedic surgery, as tolerated. Pain management/DVT prophylaxis as per primary. Discharge planning in progress for today as per orthopedic surgery. Follow-up with PCP in one week. Maintain aggressive pulmonary toileting with incentive spirometer every one hour 10, at home. The impression and plan of care has been dictated as directed. : I performed a history and examination of this patient, discussed the same with the dictator. I agree with the dictator's note ,documented as a scribe. Any additional findings or plans will be noted. Intake and: 35 min
== END 2019-02-06 14:28 | disposition home health service (06) | DRG 470 ==
LOC: 2ORMAIN 06:00 → 4SSUR 09:11
PROVIDERS: ADMIT Orthopaedic Surgery; ATTEND Orthopaedic Surgery
PROC: 0SR906A Replacement of Right Hip Joint with Oxidized Zirconium on Polyethylene Synthetic Substitute, Uncemented, Open Approach (ICD-10-PCS; principal; 2019-02-05 07:00)
DX: M16.11 Unilateral primary osteoarthritis, right hip (principal); D72.829 Elevated white blood cell count, unspecified; H91.90 Unspecified hearing loss, unspecified ear; Z96.652 Presence of left artificial knee joint; Z79.82 Long term (current) use of aspirin; Z87.891 Personal history of nicotine dependence; Z98.890 Other specified postprocedural states; Z97.3 Presence of spectacles and contact lenses
CPT/HCPCS: 73501; 85025; 86850; 86891; 86900; 86901; 88300

== ENCOUNTER → 2019-04-02 | Outpatient (CLI) | payer MEDICARE ==
[2019-04-02 16:26] LABS: Basophils # (A) 0.1 k/uL (0-0.2); Basophils % (A) 1 %; Eosinophils # (A) 0.2 k/uL (0-0.7); Eosinophils % (A) 2 %; HCT 51.1 % (39.0-53.0); Lymphocytes # (A) 1.9 k/uL (1.0-4.8); Lymphocytes % (A) 20 %; MCH 30.5 pg (25.0-35.0); MCHC 32.4 g/dL (31.0-37.0); MCV 94.1 fL (80.0-100.0); Mean Platelet Volume 6.9; Monocytes # (A) 0.6 k/uL (0-1.0); Monocytes % (A) 6 %; Neutrophils # (A) 6.9 k/uL (1.3-7.7); Neutrophils % (A) 71 %; Platelet Count 170 k/uL (150-450); RBC 5.43 m/uL (4.30-5.90); RDW 13.1 % (11.5-15.5); WBC 9.7 k/uL (3.8-10.6)
[2019-04-02 16:45] LABS: HGB 16.6 gm/dL (13.0-17.5)
[2019-04-02 20:08] LABS: Erythrocyte Sedimentation Rate 3 mm/hr (0-15)
== END | disposition home or self-care (01) ==
LOC: LABWHC1 15:41
PROVIDERS: ATTEND Orthopaedic Surgery
DX: M25.551 Pain in right hip (principal); Z47.1 Aftercare following joint replacement surgery; Z96.641 Presence of right artificial hip joint
CPT/HCPCS: 36415; 85025; 85652; 86140

== ENCOUNTER → 2019-05-30 | Outpatient (CLI) | payer MEDICARE ==
--- NOTE | 2019-05-30 11:59 | CT ---
EXAMINATION TYPE: CT hip RT wo con DATE OF EXAM: 05/30/2019 COMPARISON: CT abdomen and pelvis January 18, 2019. Right hip x-ray February 05, 2019 HISTORY: Pain post total Rt Hip surgery February 05 CT DLP: 621.2 mGycm Automated exposure control for dose reduction was used. FINDINGS: Metallic hardware from total right hip arthroplasty is redemonstrated. Alignment and position is stab le. No new suspicious surrounding lucency to suggest loosening or infection. Muscle bulk in the right thigh is fairly well-maintained. No suspicious focal fluid collection is seen. Scarring anteriorly a xial image 45 is noted. Visualized portion of pelvis redemonstrates diverticula in the sigmoid colon. Localizer redemonstrate s partial visualization of extensive surgical change to the left hip and femur. IMPRESSION: As above. No CT evidence of complication related to prosthesis.
== END | disposition home or self-care (01) ==
LOC: RADCTMAIN 11:14
PROVIDERS: ATTEND Orthopaedic Surgery
DX: Z47.1 Aftercare following joint replacement surgery (principal); Z96.641 Presence of right artificial hip joint; K57.30 Diverticulosis of large intestine without perforation or abscess without bleeding; Z98.890 Other specified postprocedural states

== ENCOUNTER 2019-06-12 12:20 | Day surgery (SDC) | payer MEDICARE ==
[2019-06-12 13:09] VITALS: RESP 16; TEMP 97.4
[2019-06-12 15:18] VITALS: BP 148/86; PULSE 79
--- NOTE | 2019-06-12 17:07 | US ---
Ultrasound guided right hip aspiration Date: 06/12/2019 History: 68 year-old male right hip pain as post right hip replacement. Procedure: 1. Ultrasound of the right hip 2. Right hip aspiration with ultrasound guidance. Correlation: CT 05/30/2019 Technique: The procedure, risks, and alternatives, were discussed with the patient, who requested tanna t we proceed. The consent form was signed, and teach-back occurred. The site/side of the procedure wa s marked with a line with participation by the patient. The accompanying paperwork was verified for c onsistency. A directed history and physical exam was performed prior to the procedure. Medication rec onciliation was performed by ancillary personnel. A critical pause was performed with assisting carl jacobs just prior to the procedure and the patient's identity was confirmed using 2 identifiers. Imagin g guidance was utilized to select the precise skin entry point just prior to the procedure. The right hip was prepped and draped in the usual sterile fashion and local 1% lidocaine anesthesia w as instilled. Under ultrasound guidance, an 18 gauge spinal needle was introduced into the prosthetic right hip prasanna vernon. The needle was abutted against the prosthetic femoral head neck junction. Aspiration yielded 1.5 mL of clear, yellowish blood-tinged fluid which was labeled and sent for analysis as ordered by the [facility] physician. The needle was then removed, hemostasis obtained, and Tegaderm dressing placed after the skin was aga in cleaned with ChloraPrep. The patient tolerated the procedure well. There were no immediate complications. After the procedure, the patient's condition was unchanged. Es timated blood loss was minimal. IMPRESSION: Successful ultrasound guided prosthetic right hip aspiration yielding 1.5 mL of clear, yellowish bloo d-tinged fluid. Laboratory analysis pending.
[2019-06-12 17:48] LABS: Appearance,BF Hazy; Color,BF Orange; Nucleated Cells, Body Fluid 250 /uL
[2019-06-12 17:49] LABS: RBC, Body Fluid 18750 /uL
[2019-06-12 20:33] LABS: Mononuclear WBC,Body Fluid 78 %; Polynuclear WBC,Body Fluid 22 %
== END 2019-06-12 14:10 | disposition home or self-care (01) ==
LOC: RADPROMAIN 12:20
PROVIDERS: ATTEND Orthopaedic Surgery
DX: M25.551 Pain in right hip (principal); Z96.641 Presence of right artificial hip joint
CPT/HCPCS: 20611; 87070; 87075; 87205; 89050

== ENCOUNTER → 2019-08-13 | Outpatient (CLI) | payer MEDICARE ==
[2019-08-13 16:38] LABS: African American GFR (CKD) >90 (>60 ml/min/1.73 sqM); Blood Urea Nitrogen 20 mg/dL (9-20); Non-African American GFR(CKD) 88 (>60 ml/min/1.73 sqM)
--- NOTE | 2019-08-13 22:55 | CT ---
EXAMINATION TYPE: CT abdomen pelvis w con DATE OF EXAM: 08/13/2019 COMPARISON: CT abdomen and pelvis January 18, 2019. HISTORY: Left lower quadrant pain, rule out inguinal hernia CT DLP: 1685 mGycm, Automated Exposure Control for Dose Reduction was Utilized. CONTRAST: CT scan of the abdomen and pelvis is performed with oral and with IV Contrast, patient injected with 100 mL of Isovue 300. FINDINGS: LUNG BASES: No significant abnormality is appreciated. LIVER/GB: No significant abnormality is appreciated. PANCREAS: Moderate fat replaced atrophy of the head and uncinate process. SPLEEN: No significant abnormality is seen. ADRENALS: No significant abnormality is seen. KIDNEYS: There is 3 mm nonobstructing calculus lower pole of the left kidney axial image 43. There is symmetric cortical medullary uptake and excretion without hydronephrosis or concerning solid or cyst ic renal mass in either kidney. BOWEL: Oral contrast does not reach level of terminal ileum. Normal-appearing appendix from the cecum . No suspicious small or large bowel dilatation. Some diverticula in the left and more prominent in t he sigmoid colon. No CT evidence for acute diverticulitis. PROSTATE/SEMINAL VESICLES: Prostate gland. Upper limits of normal in size axial image 88. LYMPH NODES: No greater than 1cm abdominal or pelvic lymph nodes are appreciated. OSSEOUS STRUCTURES: Metallic hardware from bilateral hip arthroplasty causes streak artifact limiting evaluation of osseous structures. There is right step-off of L4 and L3 with moderate to advanced dis c space narrowing and vacuum disc phenomenon. There is moderate disc space narrowing at L4-L5 level. There is facet arthropathy lower lumbar spine.. OTHER: Ectasia to the infrarenal abdominal aorta with aneurysmal to 3.8 cm just before bifurcation ax ial image 52 series 7 is noted. No aneurysmal extension into the common iliac arteries. Prominent ecc entric noncalcified plaque causes stenosis approaching but felt just under 50% before iliac bifurcati on. IMPRESSION: 1. No new fat or bowel-containing left inguinal hernia. Persistent distal colonic diverticulosis with out convincing CT evidence for acute diverticulitis. Accounting for technical differences fairly stab le 3.8 cm aneurysm of the abdominal aorta just before bifurcation. No new or suspicious acute finding identified.
== END | disposition home or self-care (01) ==
LOC: RADCTMAIN 16:04
PROVIDERS: ATTEND Surgery
DX: K57.30 Diverticulosis of large intestine without perforation or abscess without bleeding (principal); I71.4 Abdominal aortic aneurysm, without rupture; K40.30 Unilateral inguinal hernia, with obstruction, without gangrene, not specified as recurrent
CPT/HCPCS: 82565; 84520; 74177; 36415; Q9967

== ENCOUNTER 2019-08-16 08:01 | Day surgery (SDC) | payer MEDICARE ==
[2019-08-14 08:57] VITALS: BMI 69.5
[~2019-08-16 08:01] MED LIST changes: -ACETAMINOPHEN TAB 500 MG TAB PO ONE; -DEXAMETHASONE SOD PHOSPHATE 10 MG/ML 1 ML VIAL IV ONE; +LACTATED RINGERS 1,000 ML IV SCH; -MELOXICAM 7.5 MG TAB PO ONE; -MIDAZOLAM 2 MG/2 ML VIAL IV PRN; -TRANEXAMIC ACID 1,000 MG in SODIUM CHLORIDE 0.9% 100 ML IVPB ONE; -fentaNYL (PF) 50 MCG/ML 2 ML AMP IV PRN
[2019-08-16 08:24] VITALS: RESP 16; TEMP 97.8
[2019-08-16] MEDS ORDERED: LIDOCAINE 1% INJ 10MG/ML (20 ML MDV) ONE (09:03)
[2019-08-16] MEDS ORDERED: PROPOFOL 10 MG/ML 20 ML VIAL IV ONE (09:03)
--- NOTE | 2019-08-16 09:09 | P.GSHP ---
History of Present Illness H&P Date: 08/16/19 Chief Complaint: GERD, constipation This a 68-year-old male who presents today for EGD and colonoscopy. Patient's had issues with GERD and constipation. Past Medical History Past Medical History: Asthma, COPD, Osteoarthritis (OA), Pneumonia Additional Past Medical History / Comment(s): back pain and left hip pain(tendon inside hip),groin swelling, abdominal bloating, hx diverticulitis, History of Any Multi-Drug Resistant Organisms: None Reported Past Surgical History: Hernia Repair, Joint Replacement, Orthopedic Surgery Additional Past Surgical History / Comment(s): COLONOSCOPY,raheem hip replacement, right knee replacement, left femur repair ([place]), left knee replacement, 3 fingers amputated left hand-one reattached, rt elbow tendonitis surgery, Past Anesthesia/Blood Transfusion Reactions: No Reported Reaction Smoking Status: Former smoker - Past Family History Mother Family Medical History: No Reported History Medications and Allergies Home Medications Medication Instructions Recorded Confirmed Type Acetaminophen [Tylenol Extra 500 mg PO Q8HR PRN 05/28/19 08/14/19 History Strength] Gabapentin [Neurontin] 600 mg PO TID 08/14/19 08/14/19 History Allergies Allergy/AdvReac Type Severity Reaction Status Date / Time No Known Allergies Allergy Verified 08/16/19 08:21 Surgical - Exam Vital Signs Temp Pulse Resp BP Pulse Ox 97.8 F 80 16 126/74 96 08/16/19 08:22 08/16/19 08:22 08/16/19 08:22 08/16/19 08:22 08/16/19 08:22 - General well developed, well nourished, no distress - Eyes PERRL - ENT normal pinna - Neck no masses - Respiratory normal expansion - Cardiovascular Rhythm: regular - Abdomen Abdomen: soft, non tender Assessment and Plan Assessment: GERD, cuts patient. We'll perform EGD and colonoscopy.
--- NOTE | 2019-08-16 09:28 | P.OP ---
Date of Procedure: 08/16/19 Preoperative Diagnosis: GERD Constipation Postoperative Diagnosis: Antral gastritis Mild esophagitis Diverticulosis Procedure(s) Performed: EGD Colonoscopy Anesthesia: MAC Surgeon: Hector Alatorre Pathology: other (Antrum, esophagus) Condition: stable Disposition: PACU Description of Procedure: The patient's placed on the endoscopy table in the lateral position. He received IV sedation. The gastroscope placed oropharynx and passed in the esophagus into the stomach. Scope was then placed through the pylorus. The first and second portion of the duodenum appeared normal. Scope was then brought back the antrum and this was mildly inflamed. A biopsies performed. Scope was unretroflexed and remainder the stomach appeared normal. There was no significant hiatal hernia. The GE junction was at 40 cm. The distal esophagus appeared mildly inflamed a biopsies performed. Proximal esophagus appeared normal. Scope was withdrawn for patient. Next digital rectal exam was performed which revealed no abnormalities. Flexible colonoscope was then placed patient anus passed rotator entire colon. The ileocecal valve sutures. The cecum, ascending and transverse colon appeared normal. In the descending and sigmoid colon there is moderate diverticulosis. Scope was then brought back and the rectum and this appeared normal. The scope was then brought back patient.
[2019-08-16 10:06] VITALS: BP 125/74; PULSE 74
== END 2019-08-16 10:14 | disposition home or self-care (01) ==
LOC: ORWHC2ENDO 08:01
PROVIDERS: ATTEND Surgery
DX: K21.9 Gastro-esophageal reflux disease without esophagitis (principal); K31.9 Disease of stomach and duodenum, unspecified; K59.00 Constipation, unspecified; K57.30 Diverticulosis of large intestine without perforation or abscess without bleeding; K29.70 Gastritis, unspecified, without bleeding; J44.9 Chronic obstructive pulmonary disease, unspecified; M19.90 Unspecified osteoarthritis, unspecified site; Z87.01 Personal history of pneumonia (recurrent); Z98.890 Other specified postprocedural states; Z96.643 Presence of artificial hip joint, bilateral; Z96.653 Presence of artificial knee joint, bilateral; Z89.022 Acquired absence of left finger(s); Z87.891 Personal history of nicotine dependence; Z79.899 Other long term (current) drug therapy
CPT/HCPCS: 88305; 45378; 43239; J2001; J2704

== ENCOUNTER → 2020-04-29 | Outpatient (CLI) | payer MEDICARE ==
[2020-04-29 20:10] LABS: Creatine Kinase 104 U/L (35-257); Iron 63 ug/dL (65-175)
[2020-04-29 20:21] LABS: Ferritin 129.2 ng/mL (22.0-322.0)
[2020-04-30 12:13] LABS: Protein, Total 6.6 g/dL (6.2-8.2)
[2020-04-30 13:53] LABS: Albumin 4.09 g/dL (3.80-4.90); Gamma Globulin 0.86 g/dL (0.70-1.50)
== END | disposition home or self-care (01) ==
LOC: LABWHC1 11:05
PROVIDERS: ATTEND Psychiatry & Neurology Neurology
DX: G25.81 Restless legs syndrome (principal); G62.9 Polyneuropathy, unspecified; G60.9 Hereditary and idiopathic neuropathy, unspecified
CPT/HCPCS: 36415; 82306; 82550; 82607; 82728; 82747; 83540; 84165; 84207; 84439; 84443; 85652; 86038; 86334; 86618; 86780

== ENCOUNTER → 2022-08-30 | Outpatient (CLI) | payer MEDICARE ==
[2022-08-30 18:26] LABS: Basophils # (A) 0.09 X 10*3/uL (0.00-0.10); Eosinophils # (A) 0.34 X 10*3/uL (0.04-0.35); Eosinophils % (A) 3.8 %; HCT 47.6 % (39.6-50.0); HGB 16.1 g/dL (13.0-17.0); Immature Grans, Automated 2.5 %; MCH 31.2 pg (27.0-32.0); MCHC 33.8 g/dL (32.0-37.0); MCV 92.2 fL (80.0-97.0); Mean Platelet Volume 10.7 fL (9.5-12.2); Monocytes # (A) 0.76 X 10*3/uL (0.20-1.00); Monocytes % (A) 8.5 %; NRBC Per 100 WBC 0 /100 WBCS (0.0-0.0); Neutrophils # (A) 5.82 X 10*3/uL (1.80-7.70); Neutrophils % (A) 65.2 %; Platelet Count 201 X 10*3/uL (140-440); RBC 5.16 X 10*6/uL (4.40-5.60); RDW 12.8 % (11.5-14.5); WBC 8.93 X 10*3/uL (4.50-10.00)
[2022-08-30 18:31] LABS: African American GFR (CKD) 98.5 (60.0-200.0); Anion Gap 9.8 mmol/L (10.00-18.00); BUN/Creat Ratio 23.67 Ratio (12.00-20.00); Blood Urea Nitrogen 21.3 mg/dL (9.0-27.0); Calcium 9.2 mg/dL (8.7-10.3); Carbon Dioxide 27.2 mmol/L (20.0-27.5); Potassium 4.1 mmol/L (3.5-5.5)
== END | disposition home or self-care (01) ==
LOC: LABPAT 12:46
PROVIDERS: ATTEND Orthopaedic Surgery Hand Surgery
DX: Z01.818 Encounter for other preprocedural examination (principal); G56.01 Carpal tunnel syndrome, right upper limb; M65.351 Trigger finger, right little finger; I44.4 Left anterior fascicular block; R94.31 Abnormal electrocardiogram [ECG] [EKG]
CPT/HCPCS: 80048; 85025; 93005

== ENCOUNTER → 2024-09-25 | Outpatient (CLI) | payer MEDICARE ==
[2024-09-25 13:26] LABS: African American GFR (CKD) >90 (>60 ml/min/1.73 sqM); Blood Urea Nitrogen 22 mg/dL (9-20); Non-African American GFR(CKD) >90 (>60 ml/min/1.73 sqM)
--- NOTE | 2024-09-25 14:47 | CT ---
EXAMINATION TYPE: CT urogram wo/w con CT DLP: 4590.20 mGycm, Automated exposure control for dose reduction was used. DATE OF EXAM: 09/25/2024 2:28 PM COMPARISON: CT abdomen pelvis 08/13/2019, 01/18/2019 CLINICAL INDICATION:Male, 73 years old with history of R31.0 GROSS HEMATURIA; PHH, Gross hematuria, b ladder tumor. TECHNIQUE: Urogram of the abdomen and pelvis was performed before and after the administration of 100 cc of IV c ontrast Isovue 300 contrast. Delayed imaging was performed. Coronal and sagittal reformats were perfo rmed. One or more CT dose reduction strategies were utilized during this examination. 2D and 3D recon structions are performed to assist visualization of the urinary tract on a separate workstation. FINDINGS: GENITOURINARY: RIGHT KIDNEY AND URETER: No calculi. No hydronephrosis or hydroureter. No solid renal enhancing lesio ns. Couple of subcentimeter hypodense cysts. No urothelial lesions: no filling defect, dilation, stri cture or wall thickening. LEFT KIDNEY AND URETER: No calculi. No hydronephrosis or hydroureter. No solid renal enhancing lesion s. Couple of subcentimeter hypodense cysts. No urothelial lesions: no filling defect, dilation, stri cture or wall thickening. URINARY BLADDER: Mildly well distended. Evaluation is limited due to streak artifact from hip hardwar e. No gross evidence of calculi. There is a 9 mm possible filling defect within the posterior superio r aspect of the midline urinary bladder (series 23, image 79). REPRODUCTIVE: Enlarged prostate gland measuring 5.6 cm in transverse dimension. ABDOMEN LIVER: Unremarkable. GALLBLADDER AND BILE DUCTS: Unremarkable PANCREAS: Unremarkable. SPLEEN: Unremarkable. ADRENAL GLANDS: Unremarkable. STOMACH AND BOWEL: The appendix is within normal limits. Extensive distal colonic diverticulosis with out evidence for acute diverticulitis.. No evidence of bowel obstruction. PERITONEUM: No evidence of pneumoperitoneum, free fluid, or adenopathy. VASCULATURE: Mild atherosclerotic calcification of the aorta is branches. Increasing size of infraren al fusiform abdominal aortic aneurysm measuring 4.9 x 4.9 cm, previously 3.8 x 3.7 cm. Moderate amoun t of eccentric mural thrombus within the aneurysm sac. MUSCULOSKELETAL: No acute osseous abnormalities. Left iliacus intramuscular lipoma redemonstrated. Po stsurgical changes of the bilateral hips and proximal femurs. This creates streak artifact which limi ts evaluation. Remote injury to the left iliac crest. Postsurgical changes with hardware involving th e L4-L5 interspinous space. Multilevel degenerative disc disease. Resection of the spinous process L3 . Mild scoliotic curvature of the lumbar spine. SOFT TISSUE/ABDOMINAL WALL: Unremarkable. LOWER CHEST: No significant findings. IMPRESSION: 1. Questionable filling defect identified within the midline superior posterior bladder which may rep resent a urinary bladder lesion however evaluation is significantly limited from streak artifact from bilateral hip hardware. Consider direct visualization. 2. No suspicious ureteral or renal lesion. No renal or ureteral calculi. Few bilateral renal subcenti meter nonenhancing cysts. 3. Increased size of fusiform abdominal aortic aneurysm measuring up to 4.9 cm with a moderate amount of eccentric mural thrombus, previously measured up to 3.[address] 08/13/2019. Consider vascula r surgery consultation. 4. Prostatomegaly. 5. Colonic diverticulosis without evidence for acute diverticulitis. [facility], , 09/25/2024 2:44 PM
== END | disposition home or self-care (01) ==
LOC: RADCTMAIN 12:37
PROVIDERS: ATTEND Urology
DX: I71.21 Aneurysm of the ascending aorta, without rupture (principal); N40.0 Benign prostatic hyperplasia without lower urinary tract symptoms; K57.30 Diverticulosis of large intestine without perforation or abscess without bleeding; R31.0 Gross hematuria
CPT/HCPCS: 82565; 84520; 74178; 36415; 74400; Q9967

== ENCOUNTER → 2024-10-22 | Outpatient (CLI) | payer MEDICARE ==
[2024-10-22 15:22] LABS: Basophils # (A) 0.05 X 10*3/uL (0.00-0.10); Basophils % (A) 0.7 %; Eosinophils # (A) 0.22 X 10*3/uL (0.04-0.35); Eosinophils % (A) 3.3 %; HCT 47.3 % (39.6-50.0); HGB 15.7 g/dL (13.0-17.0); Lymphocytes # (A) 1.62 X 10*3/uL (0.90-5.00); Lymphocytes % (A) 24.2 %; MCH 31.1 pg (27.0-32.0); MCHC 33.2 g/dL (32.0-37.0); MCV 93.7 FL (80.0-97.0); Mean Platelet Volume 10.4 FL (9.5-12.2); Monocytes # (A) 0.58 X 10*3/uL (0.20-1.00); Monocytes % (A) 8.7 %; NRBC Per 100 WBC 0 X 10*3/uL (0.00-0.01); Neutrophils # (A) 4.21 X 10*3/uL (1.80-7.70); Neutrophils % (A) 62.8 %; Platelet Count 162 X 10*3/uL (140-440); RBC 5.05 X 10*6/uL (4.40-5.60); RDW 13.2 % (11.5-14.5)
[2024-10-22 15:47] LABS: BUN/Creat Ratio 24.71 Ratio (12.00-20.00); Blood Urea Nitrogen 17.3 mg/dL (9.0-27.0); Carbon Dioxide 26.7 mmol/L (21.6-31.8); Chloride 103 mmol/L (96-109); Glucose 95 mg/dL (70-110); Potassium 4.6 mmol/L (3.5-5.5); Sodium 141 mmol/L (135-145)
[2024-10-22 16:27] LABS: Appearance,Urine Clear (Clear); Bilirubin,Urine Negative (Negative); Blood,Urine Negative (Negative); Color,Urine Yellow (Yellow); Ketones,Urine Negative (Negative); Nitrite,Urine Negative (Negative); Specific Gravity,Urine 1.021 (1.001-1.030)
[2024-10-22 16:30] LABS: Bacteria,Urine None Seen (None Seen)
== END | disposition home or self-care (01) ==
LOC: LABPAT 11:47
PROVIDERS: ATTEND Urology
DX: Z01.812 Encounter for preprocedural laboratory examination (principal); D49.4 Neoplasm of unspecified behavior of bladder
CPT/HCPCS: 80048; 81001; 85025; 87086

== ENCOUNTER 2024-10-30 11:11 | Day surgery (SDC) | payer MEDICARE ==
--- NOTE | 2024-10-30 10:20 | P.HPIHPCON ---
History of Present Illness H&P Date: 10/30/24 Chief Complaint: Bladder mass This is a 73-year-old male with history of gross hematuria, underwent cystoscopy that showed evidence of a bladder mass. Discussed with him given this finding I do recommend proceeding with a TURBT. He is aware of the risk which include but not limited to bleeding, infection, bladder perforation Consent for Procedure: I have explained the operation/procedure to the patient, including the risks, benefits, side effects, alternative therapies (including not receiving the proposed treatment or service), the likelihood of the patient achieving his/her goals, and potential recuperation problems for the procedure/sedation/analgesia, as well as any blood products, if indicated. I also explained to the patient the risks, benefits and side effects of the alternatives, as well as the risks related to not receiving the proposed procedure, care, treatment, or services. Past Medical History Past Medical History: Cancer, Osteoarthritis (OA) Additional Past Medical History / Comment(s): back pain and right hip pain, radiating bilateral down his legs, early stages of COPD, bladder tumor History of Any Multi-Drug Resistant Organisms: None Reported Past Surgical History: Hernia Repair, Joint Replacement, Orthopedic Surgery Additional Past Surgical History / Comment(s): Left knee replacement 2001, left hip replacement 2006, right hip replacement 2018, COLONOSCOPY, femur repair 1969, left hand two fingers removed, carpal tunnel surg 2022 Past Anesthesia/Blood Transfusion Reactions: No Reported Reaction Smoking Status: Former smoker - Past Family History Mother Family Medical History: Coronary Artery Disease (CAD) Father Family Medical History: Coronary Artery Disease (CAD), Diabetes Mellitus Medications and Allergies Home Medications Medication Instructions Recorded Confirmed Type Acetaminophen [Tylenol Extra 500 mg PO Q8HR PRN 05/28/19 10/24/24 History Strength] Gabapentin [Neurontin] 600 mg PO TID 08/14/19 10/24/24 History Amitriptyline HCl [Elavil] 10 mg PO HS 09/01/22 10/24/24 History Unk Fish Oil 1 tab PO DAILY 09/01/22 10/24/24 History Unk Vitamin D3 1 tab PO DAILY 09/01/22 10/24/24 History rOPINIRole HCL [Requip] 0.5 mg PO HS 10/24/24 10/24/24 History Allergies Allergy/AdvReac Type Severity Reaction Status Date / Time No Known Allergies Allergy Verified 10/24/24 12:15 Surgical - Exam - General no distress, no pain - Eyes normal ocular movement, no pale - ENT normal nares, normal mucosa - Respiratory normal expansion, normal respiratory effort - Abdomen Abdomen: soft, non tender Assessment and Plan Assessment: OR for TURBT
[~2024-10-30 11:11] MED LIST changes: +HYDROmorphone 0.5 MG/0.5 ML SYRINGE IVP PRN; +LIDOCAINE 1% (10MG/ML) FOR IV START INTRADERMA PRN; -LIDOCAINE 1% 20 ML VIAL (10MG/ML) FOR IV START INTRADERMA PRN; +METOCLOPRAMIDE 5 MG/ML 2 ML VIAL IVP PRN; +fentaNYL (PF) 50 MCG/ML 2 ML AMP IV PRN
[2024-10-30] MEDS: IV FLUID CONTINUATION 1,000 ML IV ONE (11:40)
[2024-10-30] MEDS: DEXAMETHASONE SOD PHOSPHATE 4 MG/ML 1 ML VIAL IV ONE (12:00)
[2024-10-30] MEDS: ONDANSETRON 4 MG/2 ML VIAL IVP ONE (12:00)
[2024-10-30] MEDS ORDERED: NEOSTIGMINE 1 MG/ML 10 ML VIAL ONE (15:42)
[2024-10-30] MEDS ORDERED: MIDAZOLAM 2 MG/2 ML VIAL ONE (15:42)
[2024-10-30] MEDS ORDERED: PHENYLEPHRINE-0.9% NACL SYG 1,000 MCG/10 ML SYRINGE ONE (15:42)
[2024-10-30] MEDS ORDERED: LIDOCAINE 1% INJ 10MG/ML (20 ML MDV) ONE (15:42)
[2024-10-30] MEDS ORDERED: fentaNYL (PF) 50 MCG/ML 2 ML AMP ONE (15:42)
[2024-10-30] MEDS ORDERED: SUCCINYLCHOLINE CHLORIDE 200 MG/10 ML VIAL IV ONE (15:42)
[2024-10-30] MEDS ORDERED: PROPOFOL 10 MG/ML 20 ML VIAL IV ONE (15:42)
[2024-10-30] MEDS ORDERED: ROCURONIUM 10 MG/ML (5 ML VIAL) IV ONE (15:42)
[2024-10-30] MEDS ORDERED: GLYCOPYRROLATE 0.2 MG/ML 2 ML VIAL ONE (15:42)
[2024-10-30] MEDS: ceFAZolin 2 GM in DEXTROSE 5% IN WATER 50 ML IVPB PRN (15:44)
[2024-10-30] MEDS: LACTATED RINGERS 1,000 ML IV ONE (16:28)
--- NOTE | 2024-10-30 16:37 | P.OP ---
Date of Procedure: 10/30/24 Preoperative Diagnosis: Bladder mass Postoperative Diagnosis: Same Procedure(s) Performed: TURBT(medium) Anesthesia: LUIZA Surgeon: Vik Dillon Estimated Blood Loss (ml): 5 Pathology: other (bladder mass) Condition: stable Disposition: PACU Indications for Procedure: This is a 73-year-old male with history of gross hematuria, underwent cystoscopy that showed evidence of a bladder mass. Discussed with him given this finding I do recommend proceeding with a TURBT. 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 He was prepped and draped sterile fashion placed in dorsolithotomy position. Patient had narrowing at the meatus, this was dilated using the [place] sounds starting at 20 [place] and going all the way up to 30. At this time a resectoscope fitted with a 25 [place] sheath was inserted per urethra and advanced into the bladder, patient had a moderate enlargement of the prostate. The prostate was nonocclusive. At this point cystoscopy was performed showed a papillary tumor along the right side of the trigone superior lateral to the ureteral orifice, there was no additional lesions within the bladder. Using the bipolar resectoscope the tumor was resected down to muscle, total a resection was 2 cm. Area of resection was fulgurated, repeat cystoscopy showed no evidence of bleeding or any abnormality within the bladder. There was no evidence of bladder perforation or injury to the ureteral orifice. This time the resectoscope was withdrawn and a 20 [place] was placed with a return of clear urine. Patient was awakened from anesthesia and taken to recovery in stable condition
[2024-10-30 16:43] VITALS: TEMP 97.6
[2024-10-30 17:50] VITALS: BP 143/72; PULSE 67; RESP 16
== END 2024-10-30 18:20 | disposition home or self-care (01) ==
LOC: OR 11:11
PROVIDERS: ATTEND Urology
DX: N32.9 Bladder disorder, unspecified (principal); M19.90 Unspecified osteoarthritis, unspecified site; Z96.652 Presence of left artificial knee joint; Z96.641 Presence of right artificial hip joint; Z87.891 Personal history of nicotine dependence; Z82.49 Family history of ischemic heart disease and other diseases of the circulatory system; Z83.3 Family history of diabetes mellitus; Z98.890 Other specified postprocedural states; Z79.899 Other long term (current) drug therapy
CPT/HCPCS: 52235; J2250; J0330; J2710; J0690; J2405; J2003; J3010; J2704; J2371; J1596